=== PATIENT | male | born 1970 | race Caucasian/White ===

== ENCOUNTER 2019-05-04 09:44 | Observation (INO) ==
[2019-05-04 10:20] LABS: Basophils # 0.1 K/mcL (0.0-0.2); Basophils % 1.2 %; Eosinophils # 0.2 K/mcL (0.0-0.6); Eosinophils % 2.5 %; Hematocrit 46.9 % (37.5-50.1); Immature Granulocytes % 0.4 % (0-4); Lymphocytes # 2.5 K/mcL (0.6-4.6); Lymphocytes % 35.9 %; Mean Corpuscular HGB Conc 34.1 g/dL (31.6-35.5); Mean Corpuscular Hemoglobin 29.1 pg (28.0-33.3); Mean Corpuscular Volume 85.3 fL (83.0-100.0); Mean Platelet Volume 11.3 fL (9.4-12.4); Monocytes # 0.3 K/mcL (0.0-1.3); Monocytes % 4.8 %; Neutrophils # 3.8 K/mcL (1.6-8.9); Platelet Count 206 K/mcL (140-400); Red Cell Distribution Width 14.8 % (11.5-14.5); Segmented Neutrophils % 55.2 %; White Blood Count 6.9 K/mcL (4.3-11.1)
[2019-05-04 10:40] LABS: Bilirubin,Urine Negative (Negative); Blood,Urine Negative (Negative); Clarity,Urine Clear (Clear); Color,Urine Yellow (Yellow); Glucose,Urine (UA) >=1000 mg/dL (Normal); Ketones,Urine Trace mg/dL (Negative); Leukocyte Esterase,Urine Negative (Negative); Nitrite,Urine Negative (Negative); Protein,Urine Negative (Neg-Trace); Specific Gravity,Urine > 1.030 (1.010-1.025); Urobilinogen,Urine Normal (Normal)
[2019-05-04 10:40] LABS: BUN/Creatinine Ratio 18 (6-26); Blood Urea Nitrogen 14 mg/dL (6-20); Carbon Dioxide 20 mEq/L (23-29); Chloride 102 mEq/L (98-107); Glucose 303 mg/dL (70-105); Osmolality,Calculated 288 (280-300); Potassium 4.6 mEq/L (3.5-5.1); Sodium 133 mEq/L (136-145); eGFR For African Americans > 60 (> 60); eGFR For Non-African Americans > 60 (> 60)
[2019-05-04] MEDS ORDERED: 0.9 % Sodium Chloride 1,000 ML IVC ONE (12:34)
[2019-05-04] MEDS ORDERED: *HR* Dextrose 50 % in Water (Syg) 50 ML SYRINGE IVP PRN ×2 (12:54→17:57)
[2019-05-04] MEDS ORDERED: Naloxone 0.4 MG/ML INJ IVP PRN (12:54)
[2019-05-04] MEDS ORDERED: D5% in Water 1,000 ML IVC PRN ×2 (12:54→17:57)
[2019-05-04] MEDS ORDERED: Dextrose Gel 15 GM/37.5 ML TUBE PO PRN ×4 (12:54→17:57)
[2019-05-04] MEDS ORDERED: 0.9 % Sodium Chloride 1,000 ML IVC SCH (13:00)
[2019-05-04 13:25] LABS: Prothrombin Time 11.1 Seconds (9.4-12.1)
[2019-05-04 13:30] LABS: Magnesium 1.5 mg/dL (1.6-2.6); Phosphorous 2.9 mg/dL (2.7-4.5)
[2019-05-04 13:31] LABS: Troponin I < 0.03 ng/mL (< 0.04)
[2019-05-04 14:06] LABS: Estimated Average Glucose 232 mg/dl
[2019-05-04] MEDS: Insulin LISPRO 300 UNITS/3 ML VIAL SQ SCH ×3 (16:08→18:30)
[2019-05-04 18:29] LABS: Hematocrit 39.1 % (37.5-50.1)
[2019-05-05] MEDS: Insulin LISPRO 300 UNITS/3 ML VIAL SQ SCH ×3 (01:11→08:14)
[2019-05-05 04:52] LABS: Basophils % 0.7 %; Eosinophils # 0.2 K/mcL (0.0-0.6); Eosinophils % 3.4 %; Hematocrit 38.6 % (37.5-50.1); Hemoglobin 12.7 g/dL (12.9-16.9); Immature Granulocytes % 0.3 % (0-4); Lymphocytes # 2.3 K/mcL (0.6-4.6); Lymphocytes % 40.1 %; Mean Corpuscular HGB Conc 32.9 g/dL (31.6-35.5); Mean Corpuscular Hemoglobin 28.7 pg (28.0-33.3); Mean Corpuscular Volume 87.3 fL (83.0-100.0); Mean Platelet Volume 11.5 fL (9.4-12.4); Monocytes # 0.4 K/mcL (0.0-1.3); Monocytes % 6.3 %; Neutrophils # 2.9 K/mcL (1.6-8.9); Platelet Count 158 K/mcL (140-400); Red Blood Count 4.42 M/mcL (4.19-5.50); Red Cell Distribution Width 14.8 % (11.5-14.5); Segmented Neutrophils % 49.2 %; White Blood Count 5.8 K/mcL (4.3-11.1)
[2019-05-05 05:10] LABS: Alanine Aminotransferase 29 Units/L (7-52); Albumin 3.7 g/dL (3.5-5.7); Albumin/Globulin Ratio 1.9 (1.1-2.2); Alkaline Phosphatase 44 Units/L (34-104); Aspartate Amino Transferase 23 Units/L (13-39); BUN/Creatinine Ratio 16 (6-26); Bilirubin,Total 0.5 mg/dL (0.3-1.0); Blood Urea Nitrogen 13 mg/dL (6-20); Calcium 8.4 mg/dL (8.6-10.3); Carbon Dioxide 25 mEq/L (23-29); Chloride 103 mEq/L (98-107); Chol/HDL Ratio 3.7 (0-4.9); Cholesterol 63 mg/dL (< 200); Glucose 172 mg/dL (70-105); HDL Cholesterol 17 mg/dL (40-59); LDL Cholesterol,Calculated -10 mg/dL (0-99); Osmolality,Calculated 286 (280-300); Potassium 4.2 mEq/L (3.5-5.1); Sodium 136 mEq/L (136-145); Total Protein 5.7 g/dL (6.4-8.9); Triglycerides 282 mg/dL (< 150); eGFR For African Americans > 60 (> 60); eGFR For Non-African Americans > 60 (> 60)
[2019-05-05] MEDS ORDERED: 0.9 % Sodium Chloride 1,000 ML IVC SCH (08:00)
[2019-05-05 08:36] VITALS: BP 128/68
[2019-05-05] MEDS ORDERED: Propofol 500 MG/50 ML INFUS..BTL ONE (08:38)
[2019-05-05] MEDS ORDERED: Lidocaine -MPF 2% 2 ML VIAL ONE (08:55)
== END 2019-05-05 11:32 | disposition home or self-care (01) ==
LOC: EMEROOARM 09:44 → 3ANU 09:44
PROVIDERS: ADMIT Internal Medicine; ATTEND Internal Medicine

== ENCOUNTER 2022-02-28 12:35 | Inpatient (IN) ==
[2022-02-28] MEDS ORDERED: cefOXitin 2,000 MG in 0.9 % Sodium Chloride 20 ML IVP ONE (13:06)
[2022-02-28] MEDS ORDERED: Ringers Solution, Lactated 1,000 ML IVC SCH (13:15)
[2022-02-28] MEDS ORDERED: *HR* HYDROmorphone PF 0.5 MG/0.5 ML SYRINGE IVP PRN (14:29)
[2022-02-28] MEDS ORDERED: *HR* Labetalol 20 MG/4 ML SYRINGE IVP PRN (14:29)
[2022-02-28] MEDS ORDERED: Acetaminophen IV 1,000 MG/100 ML BAG IVPB PRN (14:29)
[2022-02-28] MEDS ORDERED: *HR* OxyCODONE Immed Rel 5 MG TABLET PO PRN ×2 (14:29→20:57)
[2022-02-28] MEDS ORDERED: Albuterol 2.5 MG/3 ML NEBULIZER IH PRN (14:29)
[2022-02-28] MEDS ORDERED: Ipratropium Neb 0.5 MG NEBULIZER IH PRN (14:29)
[2022-02-28] MEDS ORDERED: Ketorolac 30 MG/ML VIAL IVP PRN (14:29)
[2022-02-28] MEDS ORDERED: *HR* FentaNYL (PF) 100 MCG/2 ML VIAL IVP PRN (14:29)
[2022-02-28] MEDS ORDERED: Ondansetron 4 MG/2 ML VIAL IVP PRN ×2 (14:29→20:57)
[2022-02-28] MEDS ORDERED: *HR* Propofol 200 MG/20 ML VIAL IVP ONE (14:48)
[2022-02-28] MEDS ORDERED: *HR* FentaNYL (PF) 100 MCG/2 ML VIAL ONE (14:48)
[2022-02-28] MEDS ORDERED: *HR* Midazolam HCl 2 MG/2 ML VIAL ONE (14:48)
[2022-02-28] MEDS ORDERED: Lidocaine -MPF 2% 2 ML VIAL ONE (14:52)
[2022-02-28] MEDS ORDERED: Ondansetron 4 MG/2 ML VIAL ONE (14:52)
[2022-02-28] MEDS ORDERED: *HR* Rocuronium Bromide 50 MG/5 ML VIAL ONE ×3 (14:52→17:02)
[2022-02-28] MEDS ORDERED: *HR* Vasopressin 20 UNIT/ML VIAL ONE (15:33)
[2022-02-28] MEDS ORDERED: Acetaminophen IV 1,000 MG/100 ML BAG IVPB ONE (16:09)
[2022-02-28] MEDS ORDERED: *HR* HYDROMORPHONE 2 MG/ML VIAL ONE (17:21)
[2022-02-28] MEDS ORDERED: Promethazine 6.25 MG in Water for inj. (sterile) 20 ML IVPB PRN (19:29)
[2022-02-28] MEDS ORDERED: D5% in Water 1,000 ML IVC PRN (20:57)
[2022-02-28] MEDS ORDERED: *HR* Dextrose 50 % in Water (Syg) 50 ML SYRINGE IVP PRN (20:57)
[2022-02-28] MEDS ORDERED: Dextrose Gel 15 GM/37.5 ML TUBE PO PRN ×2 (20:57)
[2022-02-28] MEDS ORDERED: Morphine Sulfate Oral CONC 10 MG/0.5 ML ORAL.SYG SL PRN (20:57)
[2022-02-28] MEDS ORDERED: Naloxone 0.4 MG/ML INJ IVP PRN (20:57)
[2022-02-28] MEDS: 0.9 % Sodium Chloride 1,000 ML IVC SCH (21:13)
[2022-02-28] MEDS: Ketorolac 30 MG/ML VIAL IVP SCH (23:09)
[2022-02-28] MEDS: Acetaminophen 325 MG TABLET PO SCH (23:09)
[2022-03-01] MEDS: Insulin LISPRO 300 UNITS/3 ML VIAL SUBQ SCH ×4 (00:08→18:05)
[2022-03-01] MEDS: cefOXitin 1,000 MG in Water for inj. (sterile) 10 ML IVP SCH ×3 (01:34→18:05)
[2022-03-01] MEDS: Ketorolac 30 MG/ML VIAL IVP SCH ×3 (05:16→18:05)
[2022-03-01] MEDS: Acetaminophen 325 MG TABLET PO SCH ×3 (05:16→18:05)
[2022-03-01 05:24] LABS: Basophils % 0.1 %; Hematocrit 50.5 % (37.5-50.1); Hemoglobin 16.5 g/dL (12.9-16.9); Immature Granulocytes % 0.5 % (0-4); Immature Platelets 7.2 % (1.1-6.1); Lymphocytes # 0.8 K/mcL (0.6-4.6); Lymphocytes % 8.9 %; Mean Corpuscular HGB Conc 32.7 g/dL (31.6-35.5); Mean Corpuscular Hemoglobin 29.4 pg (28.0-33.3); Mean Corpuscular Volume 89.9 fL (83.0-100.0); Mean Platelet Volume 11.5 fL (9.4-12.4); Monocytes # 0.3 K/mcL (0.0-1.3); Monocytes % 2.9 %; Neutrophils # 8.2 K/mcL (1.6-8.9); Platelet Count 132 K/mcL (140-400); Red Blood Count 5.62 M/mcL (4.19-5.50); Red Cell Distribution Width 14.4 % (11.5-14.5); Segmented Neutrophils % 87.6 %; White Blood Count 9.4 K/mcL (4.3-11.1)
[2022-03-01 05:39] LABS: Calcium 8.9 mg/dL (8.6-10.3); Potassium 5.1 mEq/L (3.5-5.1)
[2022-03-01] MEDS: lisinopriL 20 MG TABLET PO SCH (09:48)
[2022-03-01] MEDS: *HR* Heparin 5,000 UNIT/ML VIAL SQ SCH (18:05)
[2022-03-02] MEDS: Acetaminophen 325 MG TABLET PO SCH ×2 (00:27→06:33)
[2022-03-02] MEDS: Ketorolac 30 MG/ML VIAL IVP SCH ×2 (00:27→06:33)
[2022-03-02] MEDS: 0.9 % Sodium Chloride 1,000 ML IVC SCH ×2 (00:31→07:37)
[2022-03-02] MEDS: Insulin LISPRO 300 UNITS/3 ML VIAL SUBQ SCH ×2 (00:32→07:37)
[2022-03-02] MEDS: *HR* Heparin 5,000 UNIT/ML VIAL SQ SCH (06:33)
[2022-03-02 06:58] VITALS: BP 133/77; PULSE 89; TEMP 97.8; O2SAT 94
[2022-03-02] MEDS: lisinopriL 20 MG TABLET PO SCH (08:11)
== END 2022-03-02 12:00 | disposition home or self-care (01) | DRG 330 ==
LOC: SAMDAY 12:35 → 3ANU 13:33
PROVIDERS: ADMIT Surgery; ATTEND Surgery